=== PATIENT | female | born 2000 | race Two or more races ===

== ENCOUNTER 2024-08-09 06:35 | Day surgery (SDC) | payer MEDICAID, SELFPAY ==
[2024-08-08 09:13] VITALS: BMI 19.4
[2024-08-08 10:08] LABS: Basophils % (Auto) 1 % (0-2.5); Eosinophils # (Auto) 0.1 Thou/mm3 (0.0-0.5); Eosinophils % (Auto) 2 % (0-10); Immature Granulocytes % (Auto) 0 % (0-0); Lymphocytes # (Auto) 1.8 Thou/mm3 (1.0-4.8); Lymphocytes % (Auto) 41 % (10-50); Mean Corpuscular HGB Conc 33.3 g/dl (31.0-37.0); Mean Corpuscular Hemoglobin 29.5 pg (25.0-35.0); Mean Corpuscular Volume 89 fL (80-100); Monocytes # (Auto) 0.3 Thou/mm3 (0.0-0.8); Monocytes % (Auto) 7 % (0-12); Neutrophils # (Auto) 2.2 Thou/mm3 (1.8-7.7); Neutrophils % (Auto) 50 % (37-80); Nucleated Red Blood Cell % 0 /100 WBC (0); Platelet Count 155 Thou/mm3 (140-440); RDW Standard Deviation 39.6 fL (36.4-46.3); White Blood Count 4.5 Thou/mm3 (3.6-11.0)
[2024-08-08 10:24] LABS: HCG,Qualitative Serum Negative
[2024-08-08 10:45] LABS: Hepatitis B Surface Antigen Non Reactive (Non React)
[2024-08-08 12:04] LABS: Hepatitis A Antibody IgM Non Reactive (Non React); Hepatitis B Core Antibody IgM Non Reactive (Non React); Hepatitis C Antibody Non Reactive (Non React)
[2024-08-08 14:41] LABS: HIV (1&2) Antibody Rapid Non-Reactive
[2024-08-09] VITALS (10 sets, daily range): BP systolic 106–143; BP diastolic 55–99; PULSE 53–78; RESP 12–20; TEMP 36.3–36.7; O2SAT 96–100; BMI 19.4
[2024-08-09] MEDS: RINGERS LACTATED 1000 ML 1,000 ML 20 ML IV (07:08)
--- NOTE | 2024-08-09 09:02 | PD.GYNHP ---
Documentation for date of: 08/09/24 [employer] - HPI History of Present Illness History of present illness: Ms. URIBE is a 23 year old female para 2 admitted for IUD removal via diagnostic laparoscopy patient had an IUD placed few years back and strings were not seen. Ultrasound was done which showed absence of IUD in the endometrial cavity x-ray abdomen revealed IUD intraperitoneal to the right of the midline Past Medical History Past Medical History Comments PMH COMMENT: Denies Meds Home Medications and Allergies Home Medications ?Medication ?Instructions ?Recorded ?Confirmed ?Type No Known Home Medications 08/08/24 08/08/24 History Allergies Allergy/AdvReac Type Severity Reaction Status Date / Time No Known Allergies Allergy Verified 08/09/24 07:00 Exam - [employer] Vital Signs Temp Pulse Resp BP Pulse Ox 97.4 F 60 14 109/55 L 100 08/09/24 07:01 08/09/24 07:01 08/09/24 07:01 08/09/24 07:01 08/09/24 07:01 Constitutional Constitutional: no acute distress Routine HEENT Exam Head: Present normocephalic and atraumatic Eye: Present EOMI and PERRL ENT: Present mucous membranes moist Routine Neck Exam Neck: Present supple and trachea midline Routine Respiratory Exam Respiratory: Present chest non-tender, lungs clear, normal breath sounds and no resp distress Routine Cardiovascular Exam Cardiovascular: Present RRR Routine Abdominal Exam Abdominal: Present soft and normoactive bowel sounds Routine Extremities Exam Extremities: Present full ROM Routine Skin Exam Skin: Present intact and dry Routine Neurological Exam Neurological: Present alert, oriented X3 and CN II-XII intact Routine Psychiatric Exam Psychiatric: Present normal affect and normal thought process [employer] - Results Labs 08/08/24 09:45 Labs: Short CBC 08/08/24 Range/Units 09:45 WBC 4.5 (3.6-11.0) Thou/mm3 Hgb 13.0 (12.0-16.0) g/dL Hct 39.0 (36.0-46.0) % Plt Count 155 (140-440) Thou/mm3 Impressions Impression: 23-year-old para 2 previous vaginal delivery admitted for diagnostic laparoscopy Possible IUD extraction X-ray revealed IUD to be in the right of midline in pelvis Ultrasound no IUD in the endometrial cavity Assessment and Plan Additional Assessment & Plan Additional Plan: Diagnostic laparoscopy under general anesthesia IUD removal DVT prophylaxis Quality Measures Quality Measures VTE prophylaxis
--- NOTE | 2024-08-09 10:08 | SUR.PHASEI ---
1000 Patient arrived to recovery resting comfortably in [facility], drowsy and able to arouse and speak with staff, breathing unlabored, vital signs stable, denies pain states, I just have a little bit of cramps , per patient the cramps are tolerable, dressing intact to lower abdomen; dermabond, no bleeding noted, lung sounds clear upon auscultation, bilateral radial pulses present when palpated, report received from Dr. Eaton and Elliot/Juan Ramon HUNT
--- NOTE | 2024-08-09 10:14 | ESOP_ITS ---
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 General anesthesia was given without any complications.? A time out was given confirming Ami Tirado was undergoing the following, procedure,allergies, and surgeon.The patient was positioned in the dorsal lithotomy position. The bladder was emptied. The perineum was prepped with Betadine solution per routine.The abdomen was prepped with DuraPrep.Attention was then focused to the vagina.? A sponge placed in a ring forceps was placed in the posterior fornix and used as a uterine manipulator.? The surgeon then changed gloves to continue proper sterile technique. Attention was diverted to the abdomen. An umblical incision was first made, Two towel clips were placed lateral to the umbilicus in order to elevate the abdominal wall.? A hemostat was used to assess the depth to the fascia. While applying countertraction by lifting the towel clips, a Veress needle was used to enter the peritoneal cavity, a initial abdominal pressure of 2 mmHg was noted upon entry. Veress needle used for initial pneumoperitoneum establishment. 5 mm port used for the direct trocar entry the abdomen was then insufflated with CO2 gas to 15mmHg, under the opti-view system was advanced into the peritoneal entry.? The rt lower quadrant was evaluated and a 5-mm incision was made . 5-mm trocar placed under camera surveillance.? Left side evaluated and a 5mm trocar inserted under optiview surveillance. On observation: IUD with strings seen entangled in the omentum Normal anatomy with bilateral ovaries and tubes no other peritoneal pathology identified. Using a laparoscopic grasper, slowly omental adhesions were released from the IUD and the IUD was extracted out of the abdomen through one of the laparoscopic ports. All the bowel at the initial trocar entry point was examined no entry injuries were noted. 3 abdominal incisions were closed after release of pneumoperitoneum with 3-0 Vicryl and local anesthesia used. Vaginal manipulator taken out Estimated blood loss (ml): 1 Complications: none Surgical staff Operation Date: 08/09/24 08:45 Case Staff Anesthesiologist: Mario Eaton boring machine operator helper: Shagufta Field Diagnosis Problem List Completed Was Problem List Reviewed/Reconciled?: Yes
[2024-08-09] MEDS: ACETAMINOPHEN IVPB 1,000 MG/100 ML VIAL 250 MG IV (10:36)
--- NOTE | 2024-08-09 11:50 | SUR.PHASEII ---
1150 Patient meets discharge criteria from recovery, awake and alert, breathing unlabored, vital signs stable, denies pain, dressing intact; no bleeding noted, patient drinking apple juice and eating jello; denies nausea, patient assisted with dressing into her clothing by her , discharge instructions given with the assistance of the telephone medical interpreter Sandra ID#[id number] to patient and her with teach-back approach, patient and her both receptive, patients signed discharge instructions. Patient given all her belongings prior to discharge, transported via wheelchair and left in a private vehicle.
== END 2024-08-09 11:50 | disposition home or self-care (01) ==
PROVIDERS: PCP Family Medicine; Referring Provider Student in an Organized Health Care Education/Training Program; Visit Provider Student in an Organized Health Care Education/Training Program
PROC: (CPT 49320; principal; 2024-08-09 08:30)
DX: T83.32XA Displacement of intrauterine contraceptive device, initial encounter (principal)
CPT/HCPCS: 58301; 36415; 80074; 84703; 85025; 86703; 86850; 86900; 86901; A4217; A4649; J0131; J0461; J0690; J1100; J2250; J2405; J2704; J3010; J3490; J7120; A9270